=== PATIENT | female | born 1980 | race Caucasian/White ===

== ENCOUNTER 2019-04-20 14:11 | Outpatient (CLI) | payer OTHER ==
--- NOTE | 2019-04-20 14:38 | RAD ---
RIGHT ANKLE 3 VIEWS: Date: 04/20/19 HISTORY: Ankle pain. FINDINGS: Soft tissue swelling is noted laterally. Mild degenerative change at the ankle. No evidence of fractu re. IMPRESSION: No evidence of acute fracture. POS: [facility]
== END 2019-04-20 14:12 | disposition home or self-care (01) ==
LOC: BICRAD 14:11
PROVIDERS: ATTEND Family Medicine
DX: M25.571 Pain in right ankle and joints of right foot (principal)